=== PATIENT | male | born 1960 | race Caucasian/White ===

== ENCOUNTER 2024-01-09 05:51 | Emergency (ER) | payer BC, SELFPAY ==
[2024-01-09 06:03] VITALS: BP 129/80; PULSE 78; RESP 18; TEMP 36.9; O2SAT 99; BMI 31.0
== END 2024-01-09 08:10 | disposition left against medical advice (07) ==
PROVIDERS: Emergency Provider Emergency Medicine; PCP Internal Medicine
DX: M79.642 Pain in left hand (principal)
CPT/HCPCS: 99281